=== PATIENT | female | born 1980 | race American Indian/Alaskan Native ===

== ENCOUNTER 2020-01-29 13:53 | Emergency (ER) | payer SELFPAY ==
--- NOTE | 2020-01-29 15:18 | Event Note ---
ED Screening Note ED Screening Note: pt presents with a syncopal episode that occurred today she states she was outside walking states she got overheated, felt nauseous and lightheaded no v/d, no fever, no SOB, no CP PMHx asthma no allergies to meds states she believes her cycle was last month? This initial assessment/diagnostic orders/clinical plan/treatment(s) is/are subject to change based on patients health status, clinical progression and re- assessment by fellow clinical providers in the ED. Further treatment and workup at subsequent clinical providers discretion. Patient/guardian urged not to elope from the ED as their condition may be serious if not clinically assessed and managed. Initial orders include: labs, UA, EKG
[2020-01-29 15:43] LABS: Bilirubin,Urine NEG (Negative); Blood,Urine NEG (Negative); Color,Urine Yellow (Yellow); Mucus,Urine FEW /HPF; Protein,Urine <15 mg/dL mg/dL (Negative); Urobilinogen,Urine < 2.0 mg/dL (<2.0)
[2020-01-29 15:51] LABS: Basophils % (Auto) 0.7 % (0.0-1.8); Eosinophils # (Auto) 0.2 K/mm3 (0.0-0.4); Eosinophils % (Auto) 3.1 % (0.0-4.3); Hematocrit 39.6 % (30.3-42.9); Hemoglobin 12.5 gm/dl (10.1-14.3); Lymphocytes # (Auto) 2.1 K/mm3 (1.2-5.4); Lymphocytes % (Auto) 32.5 % (13.4-35.0); Mean Corpuscular HGB Conc 32 % (30-34); Mean Corpuscular Volume 83 fl (79-97); Monocytes # (Auto) 0.3 K/mm3 (0.0-0.8); Monocytes % (Auto) 4.9 % (0.0-7.3); Platelet Count 319 K/mm3 (140-440); Red Blood Count 4.77 M/mm3 (3.65-5.03); Red Cell Distribution Width 12.9 % (13.2-15.2)
[2020-01-29 16:07] LABS: Alanine Aminotransferase 10 units/L (7-56); Albumin 4.3 g/dL (3.9-5); BUN/Creatinine Ratio 18; Blood Urea Nitrogen 9 mg/dL (7-17); Hemolysis Index 3
[2020-01-29] MEDS ORDERED: POTASSIUM CHLORIDE ER 20 MEQ TAB PO ONE (16:26)
--- NOTE | 2020-01-29 17:56 | Emergency Department Report ---
- General Chief complaint: Weakness Stated complaint: WEAK PUI?: No Time Seen by Provider: 01/29/20 15:15 Source: patient Mode of arrival: Ambulatory Limitations: No Limitations - History of Present Illness Initial comments: Patient is a 39-year-old female that presents emergency room with complaints of a syncopal episode at noon today. Patient states this morning she woke up with a headache and feeling weak. Patient states she was walking outside and became diaphoretic and weak and passed out. Patient is unsure how long she had passed out for. Patient states that bystanders woke her up. Patient states that EMS came and checked her out and her family brought her to the emergency room to be evaluated. Patient states that she has intermittent lower abdominal cramping. Patient states 8 months ago she had an ectopic where she required a D&C. Patient states she is not sure when her last menstrual period was. Patient states is not having any abdominal pain at this time. Patient denies nausea vomiting. Patient states that the headache is a 6 out of 10. Patient states is better with rest and worse with movement. Patient denies blurry vision. Patient denies neck pain. Patient denies fever chills. Patient states she is not sure when her last menses were. Patient states her last 2 periods have been abnormal. Patient states her last period had large amount of clots in it. Patient denies recent travel. Patient denies recent international travel. Patient denies exposure to the novel coronavirus. Patient denies sick contacts. Patient denies fever and chills. Patient denies cough. Patient denies diarrhea. Patient denies coming in contact with anybody with symptoms of the novel coronavirus. MD Complaint: generalized weakness Location: other Severity scale (0 -10): 6 Quality: aching Consistency: constant Improves with: rest Worsens with: movement Associated Symptoms: diaphoresis, headaches, syncope. denies: chest pain, confusion, dark stools, dysuria, easy bruising, fever/chills, loss of appetite, nausea/vomiting, myalgias, rash, shortness of breath - Related Data Previous Rx's Medication Instructions Recorded Last Taken Type Potassium Chloride [K-Dur] 20 meq PO DAILY 15 Days #15 tab 01/29/20 Unknown Rx Allergies Allergy/AdvReac Type Severity Reaction Status Date / Time No Known Allergies Allergy Unverified 01/29/20 14:12 ED Review of Systems ROS: Stated complaint: WEAK Other details as noted in HPI Constitutional: weakness. denies: chills, fever Eyes: denies: eye pain, eye discharge, vision change ENT: denies: ear pain, throat pain Respiratory: denies: cough, shortness of breath, wheezing Cardiovascular: denies: chest pain, palpitations Endocrine: no symptoms reported Gastrointestinal: abdominal pain. denies: nausea, diarrhea Genitourinary: denies: urgency, dysuria, discharge Musculoskeletal: denies: back pain, joint swelling, arthralgia Skin: denies: rash, lesions Neurological: as per HPI, headache, weakness, other (Syncope). denies: paresthesias Psychiatric: denies: anxiety, depression Hematological/Lymphatic: denies: easy bleeding, easy bruising ED Past Medical Hx - Past Medical History Previous Medical History?: Yes Additional medical history: Ectopic - Surgical History Past Surgical History?: Yes Additional Surgical History: D&C - Family History Family history: no significant - Social History Smoking Status: Never Smoker Substance Use Type: None - Medications Home Medications: Home Medications Medication Instructions Recorded Confirmed Last Taken Type Potassium Chloride [K-Dur] 20 meq PO DAILY 15 Days #15 tab 01/29/20 Unknown Rx ED Physical Exam - General Limitations: No Limitations General appearance: alert, in no apparent distress - Head Head exam: Present: atraumatic, normocephalic - Eye Eye exam: Present: normal appearance, PERRL Pupils: Present: normal accommodation - ENT ENT exam: Present: mucous membranes moist - Neck Neck exam: Present: normal inspection, full ROM. Absent: tenderness, meningismu s - Respiratory Respiratory exam: Present: normal lung sounds bilaterally. Absent: respiratory distress, wheezes, rhonchi - Cardiovascular Cardiovascular Exam: Present: regular rate, normal rhythm. Absent: bradycardia, tachycardia, irregular rhythm, systolic murmur, diastolic murmur, rubs, gallop - GI/Abdominal GI/Abdominal exam: Present: soft, normal bowel sounds. Absent: distended, tenderness, guarding - Rectal Rectal exam: Present: deferred - Extremities Exam Extremities exam: Present: normal inspection - Back Exam Back exam: Present: normal inspection - Neurological Exam Neurological exam: Present: alert, oriented X3 - Psychiatric Psychiatric exam: Present: normal affect, normal mood - Skin Skin exam: Present: warm, dry, intact, normal color. Absent: rash - Assessment Assessment Interval: Baseline - Level of Consciousness 1a. Level of Consciousness: alert/keenly responsive - LOC Questions 1b. LOC Questions: answers both correctly - LOC Command 1c. LOC Commands: performs tasks correctly - Best Gaze 2. Best Gaze: normal - Visual 3. Visual: no visual loss - Facial Palsy 4. Facial Palsy: normal symmetrical movement - Motor Arm 5a. Motor Arm Left: no drift 5b. Motor Arm Right: no drift - Motor Leg 6a. Motor Leg Left: no drift 6b. Motor Leg Right: no drift - Limb Ataxia 7. Limb Ataxia: absent - Sensory 8. Sensory: normal - Best Language 9. Best Language: no aphasia - Dysarthria 10. Dysarthria: normal - Extinction and Inattention 11. Extinction/Inattention: no abnormality - Scoring Total Score: 0 Stroke Severity: No Stroke Symptoms ED Course Vital Signs 01/29/20 01/29/20 15:17 20:07 Temperature 98.1 F 98.3 F Pulse Rate 61 91 H Respiratory 20 14 Rate Blood Pressure 158/103 127/87 [Left] O2 Sat by Pulse 100 100 Oximetry - Reevaluation(s) Reevaluation #1: Patient tolerated p.o. food and fluids. Patient denies pain at this time. I discussed all results and clinical findings with patient. I discussed plan of care with patient. Patient agrees with plan of care. Patient is stable for discharge. Patient will be discharged home. Patient given discharge instructions. Patient voiced understanding of discharge instructions. 01/29/20 20:27 ED Medical Decision Making - Lab Data Result diagrams: 01/29/20 15:35 01/29/20 15:35 - EKG Data -: EKG Interpreted by De EKG shows normal: sinus rhythm, axis, intervals, QRS complexes, ST-T waves Rate: normal - Radiology Data Radiology results: report reviewed, image reviewed NONENHANCED CT SCAN OF THE HEAD: INDICATION / CLINICAL INFORMATION: 39 years Female; syncope. TECHNIQUE: Routine CT head without contrast. All CT scans at this location are performed using CT dose reduction for ALARA by means of automated exposure control. COMPARISON: None. FINDINGS: BRAIN / INTRACRANIAL CONTENTS: No acute hemorrhage, mass effect, midline shift, hydrocephalus, or acute, large territorial infarct. No chronic infarct or focal atrophy. Normal brain volume and ventricular/sulcal size for age. No significant white matter abnormality. CRANIOCERVICAL JUNCTION: No significant abnormality. ORBITS: No significant abnormality of visualized orbits. SINUSES / MASTOIDS: No significant abnormality of the visualized paranasal sinuses or mastoid air cells. ADDITIONAL FINDINGS: None. IMPRESSION: Normal nonenhanced CT scan of the brain. ULTRASOUND OBSTETRIC INDICATION / CLINICAL INFORMATION: elvated hcg, intermittent abd cramps. History of ectopic Clinical Gestational Age (GA): Unknown TECHNIQUE: Transabdominal. COMPARISON: None available. FINDINGS: The uterus is unremarkable. No evidence of gestational sac or focal uterine mass. Endometrium has a thickness of 8 mm. ADNEXA: Both ovaries are well-visualized and appear grossly unremarkable. The ri ght ovary measures 3.1 x 3.0 x 1.9 cm. The left ovary measures 2.7 x 2.2 x 2.3 cm. No adnexal mass. FREE FLUID: None. ADDITIONAL FINDINGS: None. IMPRESSION: 1. The uterus and both ovaries have a normal sonographic appearance. No evidence of IUP or adnexal mass at this time. Please correlate clinically. - Medical Decision Making Patient is a 39-year-old female that presents emergency room with complaints of weakness, headache and syncope. Patient also complained of abnormal menses and a topic 8 months ago. Patient is sexually active. Patient is unclear when her last period was. Patient had abnormal hCG and had a pelvic ultrasound which showed endometrial thickening but no . Ultrasound also did not show any ectopic . Patient had a head CT for her headache and syncope and it was negative for acute findings. Patient's labs are unremarkable except for a mild hypokalemia. Patient tolerated p.o. intake. Patient tolerated p.o. fluids. Patient clinical findings are consistent with syncope, headache, weakness, dehydration. Patient stable for discharge. Patient be discharged home. - Differential Diagnosis Abdominal cramps, syncope, abnormal menses, dehydration, headache Critical care attestation.: If time is entered above; I have spent that time in minutes in the direct care of this critically ill patient, excluding procedure time. ED Disposition Clinical Impression: Weakness, Abdominal cramping, Hypokalemia, Dehydration, Abnormal menses Syncope Qualifiers: Syncope type: unspecified Qualified Code(s): R55 - Syncope and collapse Headache Qualifiers: Headache type: unspecified Headache chronicity pattern: acute headache Intractability: not intractable Qualified Code(s): R51 - Headache Disposition: DC-01 TO HOME OR SELFCARE Is pt being admited?: No Does the pt Need Aspirin: No Condition: Stable Instructions: Syncope (ED), Acute Headache (ED), Menstruation (ED), Menorrhagia (ED), Dehydration (ED) Additional Instructions: Patient to follow-up with primary care in 2 to 3 days. Patient to follow-up with PRACTICE REPRESENTATIVE in 2 to 3 days. Patient to follow-up with neurologist in 2 to 3 days. Patient to follow-up with interior design instructor in 2 to 3 days. Patient to rest. Patient to increase water. Patient to avoid strenuous exercise or heavy lifting until cleared by interior design instructor and neurology.. Patient will need a chemistry recheck in 2 to 3 days at primary care. Patient to take Tylenol or ibuprofen as needed for pain. Patient to take meds as directed. Patient to return to the ER if condition worsens, changes or new symptoms arise. Prescriptions: Potassium Chloride [K-Dur] 20 meq PO DAILY 15 Days #15 tab Referrals: WILLIAM VASQUEZ MD [Primary Care Provider] - 2-3 Days GEORGE DICKSON MD [Staff Physician] - 2-3 Days GEOVANNY OSCAR MD [Staff Physician] - 2-3 Days NASREEN GARCIA MD [Staff Physician] - 2-3 Days Time of Disposition: 20:27
--- NOTE | 2020-01-29 19:50 | Cat Scan Report ---
NONENHANCED CT SCAN OF THE HEAD: INDICATION / CLINICAL INFORMATION: 39 years Female; syncope. TECHNIQUE: Routine CT head without contrast. All CT scans at this location are performed using CT dos e reduction for ALARA by means of automated exposure control. COMPARISON: None. FINDINGS: BRAIN / INTRACRANIAL CONTENTS: No acute hemorrhage, mass effect, midline shift, hydrocephalus, or ac payam, large territorial infarct. No chronic infarct or focal atrophy. Normal brain volume and ventricu lar/sulcal size for age. No significant white matter abnormality. CRANIOCERVICAL JUNCTION: No significant abnormality. ORBITS: No significant abnormality of visualized orbits. SINUSES / MASTOIDS: No significant abnormality of the visualized paranasal sinuses or mastoid air windy ls. ADDITIONAL FINDINGS: None. IMPRESSION: Normal nonenhanced CT scan of the brain. Signer Name: Adam Alcala MD Signed: 01/29/2020 7:45 PM Workstation Name: [id number]
[2020-01-29 20:08] VITALS: BP 127/87
--- NOTE | 2020-01-29 20:08 | Ultrasound Report ---
ULTRASOUND OBSTETRIC INDICATION / CLINICAL INFORMATION: elvated hcg, intermittent abd cramps. History of ectopic Clinical Gestational Age (GA): Unknown TECHNIQUE: Transabdominal. COMPARISON: None available. FINDINGS: The uterus is unremarkable. No evidence of gestational sac or focal uterine mass. Endometrium has a t hickness of 8 mm. ADNEXA: Both ovaries are well-visualized and appear grossly unremarkable. The right ovary measures 3. 1 x 3.0 x 1.9 cm. The left ovary measures 2.7 x 2.2 x 2.3 cm. No adnexal mass. FREE FLUID: None. ADDITIONAL FINDINGS: None. IMPRESSION: 1. The uterus and both ovaries have a normal sonographic appearance. No evidence of IUP or adnexal ma ss at this time. Please correlate clinically. Signer Name: Rehana Helton MD Signed: 01/29/2020 8:03 PM Workstation Name: [id number]
== END 2020-01-29 20:50 | disposition home or self-care (01) ==
LOC: ED 13:53
DX: E87.6 Hypokalemia (principal); E86.0 Dehydration; N92.5 Other specified irregular menstruation
CPT/HCPCS: 36415; 70450; 76801; 80053; 81001; 82962; 83735; 84702; 85025; 93005

== ENCOUNTER 2020-07-06 14:50 | Emergency (ER) | payer SELFPAY ==
[2020-07-06 17:02] LABS: Basophils # (Auto) 0.1 K/mm3 (0.0-0.1); Basophils % (Auto) 0.9 % (0.0-1.8); Eosinophils # (Auto) 0.4 K/mm3 (0.0-0.4); Eosinophils % (Auto) 7.6 % (0.0-4.3); Hematocrit 36.7 % (30.3-42.9); Hemoglobin 11.9 gm/dl (10.1-14.3); Lymphocytes # (Auto) 2.3 K/mm3 (1.2-5.4); Mean Corpuscular HGB Conc 33 % (30-34); Mean Corpuscular Volume 81 fl (79-97); Monocytes # (Auto) 0.4 K/mm3 (0.0-0.8); Monocytes % (Auto) 6.6 % (0.0-7.3); Platelet Count 283 K/mm3 (140-440); Red Cell Distribution Width 13.6 % (13.2-15.2)
[2020-07-06 17:22] LABS: Alanine Aminotransferase 9 units/L (7-56); Albumin 4.4 g/dL (3.9-5); BUN/Creatinine Ratio 20; Blood Urea Nitrogen 14 mg/dL (7-17); Calcium 9.6 mg/dL (8.4-10.2); Hemolysis Index 6
[2020-07-06] MEDS ORDERED: ONDANSETRON 4 MG ODT TAB PO ONE (21:04)
[2020-07-06 21:09] VITALS: BP 110/72
--- NOTE | 2020-07-06 21:11 | Emergency Department Report ---
ED General Adult HPI - General Chief complaint: Nausea/Vomiting/Diarrhea Stated complaint: VOMIT/LIGHT HEADED/DIZZY Time Seen by Provider: 07/06/20 20:53 Source: patient Mode of arrival: Ambulatory Limitations: No Limitations - History of Present Illness Initial comments: 39-year-old -[place]og[place] female patient presents with complaints of nausea and vomiting x yesterday. Patient states her symptoms began while she was at work after feeling like she was going to pass out. She denies any loss of consciousness, hematemesis/coffee-ground emesis, diarrhea, abdominal pain. She admits to a mild nonproductive cough without shortness of breath chest pain. She admits to history of asthma. No known sick contacts or fever/chills/sweats per patient. Prior surgical history includes removal of ectopic per patient. - Related Data Previous Rx's Medication Instructions Recorded Last Taken Type Potassium Chloride [K-Dur] 20 meq PO DAILY 15 Days #15 tab 01/29/20 Unknown Rx Albuterol Mdi (or & Nicu Only) 2 puff IH Q4H PRN #8.5 gram 07/06/20 Unknown Rx [ProAir HFA Inhaler] Benzonatate 200 mg PO TID PRN #30 capsule 07/06/20 Unknown Rx Famotidine [Pepcid] 20 mg PO BID #10 tablet 07/06/20 Unknown Rx Ondansetron [Zofran Odt] 4 mg PO Q8HR PRN #15 tab.rapdis 07/06/20 Unknown Rx Allergies Allergy/AdvReac Type Severity Reaction Status Date / Time No Known Allergies Allergy Unverified 01/29/20 14:12 ED Review of Systems ROS: Stated complaint: VOMIT/LIGHT HEADED/DIZZY Other details as noted in HPI Constitutional: denies: chills, fever, malaise ENT: denies: throat pain Respiratory: cough. denies: shortness of breath Cardiovascular: denies: chest pain, palpitations Gastrointestinal: nausea, vomiting. denies: abdominal pain, diarrhea, constipation, hematemesis, melena, hematochezia Genitourinary: denies: urgency, dysuria, frequency, hematuria Musculoskeletal: denies: back pain Skin: denies: change in color Neurological: denies: headache Hematological/Lymphatic: denies: swollen glands ED Past Medical Hx - Past Medical History Previous Medical History?: Yes Additional medical history: Ectopic - Surgical History Past Surgical History?: Yes Additional Surgical History: D&C - Social History Smoking Status: Never Smoker Substance Use Type: None - Medications Home Medications: Home Medications Medication Instructions Recorded Confirmed Last Taken Type Potassium Chloride [K-Dur] 20 meq PO DAILY 15 Days #15 tab 01/29/20 Unknown Rx Albuterol Mdi (or & Nicu Only) 2 puff IH Q4H PRN #8.5 gram 07/06/20 Unknown Rx [ProAir HFA Inhaler] Benzonatate 200 mg PO TID PRN #30 capsule 07/06/20 Unknown Rx Famotidine [Pepcid] 20 mg PO BID #10 tablet 07/06/20 Unknown Rx Ondansetron [Zofran Odt] 4 mg PO Q8HR PRN #15 tab.rapdis 07/06/20 Unknown Rx ED Physical Exam - General Limitations: No Limitations General appearance: alert, in no apparent distress - Eye Eye exam: Present: normal appearance. Absent: scleral icterus - Neck Neck exam: Present: normal inspection - Respiratory Respiratory exam: Present: normal lung sounds bilaterally. Absent: respiratory distress - Cardiovascular Cardiovascular Exam: Present: regular rate, normal rhythm. Absent: systolic murmur, diastolic murmur, rubs, gallop - GI/Abdominal GI/Abdominal exam: Present: soft, normal bowel sounds. Absent: distended, tenderness, guarding, rebound, rigid - Extremities Exam Extremities exam: Present: full ROM - Neurological Exam Neurological exam: Present: alert, oriented X3 - Psychiatric Psychiatric exam: Present: normal affect, normal mood - Skin Skin exam: Present: warm, dry, intact, normal color. Absent: rash, cyanosis, diaphoretic, ecchymosis ED Course Vital Signs 07/06/20 07/06/20 15:25 21:07 Temperature 97.7 F 98.0 F Pulse Rate 80 57 L Respiratory 16 18 Rate Blood Pressure 121/98 110/72 O2 Sat by Pulse 99 98 Oximetry ED Medical Decision Making - Lab Data Result diagrams: 07/06/20 16:25 07/06/20 16:25 Lab Results 07/06/20 07/06/20 07/06/20 Range/Units 16:25 16:25 16:25 WBC 5.9 (4.5-11.0) K/mm3 RBC 4.50 (3.65-5.03) M/mm3 Hgb 11.9 (10.1-14.3) gm/dl Hct 36.7 (30.3-42.9) % MCV 81 (79-97) fl MCH 27 L (28-32) pg MCHC 33 (30-34) % RDW 13.6 (13.2-15.2) % Plt Count 283 (140-440) K/mm3 Lymph % (Auto) 39.0 H (13.4-35.0) % [place] % (Auto) 6.6 (0.0-7.3) % Eos % (Auto) 7.6 H (0.0-4.3) % Baso % (Auto) 0.9 (0.0-1.8) % Lymph # (Auto) 2.3 (1.2-5.4) K/mm3 [place] # (Auto) 0.4 (0.0-0.8) K/mm3 Eos # (Auto) 0.4 (0.0-0.4) K/mm3 Baso # (Auto) 0.1 (0.0-0.1) K/mm3 Seg Neutrophils % 45.9 (40.0-70.0) % Seg Neutrophils # 2.7 (1.8-7.7) K/mm3 Sodium 139 (137-145) mmol/L Potassium 3.4 L (3.6-5.0) mmol/L Chloride 103.4 (98-107) mmol/L Carbon Dioxide 29 (22-30) mmol/L Anion Gap 10 mmol/L BUN 14 (7-17) mg/dL Creatinine 0.7 (0.6-1.2) mg/dL Estimated GFR > 60 ml/min BUN/Creatinine Ratio 20 % Glucose 98 (65-100) mg/dL Calcium 9.6 (8.4-10.2) mg/dL Total Bilirubin 1.30 H (0.1-1.2) mg/dL AST 13 (5-40) units/L ALT 9 (7-56) units/L Alkaline Phosphatase 34 L (35-129) units/L Total Protein 7.7 (6.3-8.2) g/dL Albumin 4.4 (3.9-5) g/dL Albumin/Globulin Ratio 1.3 % Lipase 18 (13-60) units/L HCG, Qual Negative (Negative) - Medical Decision Making 39-year-old -[place] female patient presents with complaints of nausea and vomiting x yesterday. Patient states her symptoms began while she was at work after feeling like she was going to pass out. She denies any loss of consciousness, hematemesis/coffee-ground emesis, diarrhea, abdominal pain, cough, shortness of breath, or chest pain. No known sick contacts or fever/chills/sweats per patient. Patient also denies any prior medical history. Prior surgical history includes removal of ectopic per patient. No tenderness of the abdomen is noted on exam. No significant abnormalities are noted on labs. Patient given p.o. Zofran and is eating [employer]. She is well-appearing her vitals are normal. Patient stable for discharge home. Will treat symptomatically with Zofran and Pepcid. Recommend follow-up with PCP within 3 days. Discussed need for Covid testing and patient was provided with a Covid testing facility list. Strict return precautions were discussed in great detail with patient who verbalizes understanding peer Critical care attestation.: If time is entered above; I have spent that time in minutes in the direct care of this critically ill patient, excluding procedure time. ED Disposition Clinical Impression: Viral syndrome Disposition: DC-01 TO HOME OR SELFCARE Is pt being admited?: No Condition: Stable Instructions: Viral Illness, Adult Prescriptions: Benzonatate 200 mg PO TID PRN #30 capsule PRN Reason: Cough Famotidine [Pepcid] 20 mg PO BID #10 tablet Albuterol Mdi (or & Nicu Only) [ProAir HFA Inhaler] 2 puff IH Q4H PRN #8.5 gram PRN Reason: Shortness Of Breath Ondansetron [Zofran Odt] 4 mg PO Q8HR PRN #15 tab.rapdis PRN Reason: Nausea Referrals: [facility] [Provider Group] - 3-5 Days Forms: Work/School Release Form(ED)
== END 2020-07-06 21:18 | disposition home or self-care (01) ==
LOC: ED 14:50
DX: B34.9 Viral infection, unspecified (principal); Z79.899 Other long term (current) drug therapy; Z98.890 Other specified postprocedural states
CPT/HCPCS: 36415; 80053; 83690; 84703; 85025; 99283; Q0162